=== PATIENT | female | born 1960 | race American Indian/Alaskan Native ===

== ENCOUNTER 2018-01-09 14:48 | Emergency (ER) | payer MEDICAID, OTHER ==
[2018-01-09 15:14] VITALS: BMI 21.7
--- NOTE | 2018-01-09 16:00 | C.PDOC ---
History Of Present Illness 57 y/o F c PMHx HTN, DM p/w fever, congestion, body aches x 6 days. Denies abd pain, diarrhea, rash, recent travel. Had 1 episode of NBNB vomiting on Day 1. treated in this ED yesterday and prescribed Tamiflu. Time Seen by Provider: 01/09/18 15:42 Chief Complaint (Nursing): Flu-like Symptoms Past Medical History Vital Signs: Last Vital Signs Temp 99.6 F 01/09/18 17:41 Pulse 105 H 01/09/18 17:41 Resp 18 01/09/18 17:41 BP 106/71 01/09/18 17:41 Pulse Ox 95 01/09/18 17:41 - Medical History PMH: HTN Family History: States: No Known Family Hx - Social History Hx Alcohol Use: No Hx Substance Use: No - Immunization History Hx Tetanus Toxoid Vaccination: No Hx Influenza Vaccination: Yes (2016) Hx Pneumococcal Vaccination: No Review Of Systems Except As Marked, All Systems Reviewed And Found Negative. Respiratory: Negative for: Shortness of Breath Gastrointestinal: Negative for: Diarrhea Physical Exam - Physical Exam Additional Physical Exam Comments: Gen: NAD Head: NC Eyes: PERRL ENT: MMM Neck: Supple CV: Tachyardic Lungs: No accessory muscle use Abd: Soft Extremities: No swelling Neuro: Alert, no focal deficit ED Course And Treatment O2 Sat by Pulse Oximetry: 96 Medical Decision Making Medical Decision Making: CXR no acute disease. Temperature and HR both improved. Patient appears well. Will discharge, f/u PMD , instructed to return to ED for worsening dyspnea, vomiting, weakness, or any other problem. Disposition - Disposition Referrals: Odin Lara MD [Staff Provider] - Disposition: HOME/ ROUTINE Disposition Time: 17:49 Condition: STABLE Prescriptions: Oseltamivir Phosphate [Tamiflu] 75 mg PO BID #10 capsule Instructions: Flu, Adult (DC) Forms: [employer] ([place]wegian) - Clinical Impression Clinical Impression: Influenza-like illness
--- NOTE | 2018-01-09 16:46 | RAD ---
HISTORY: cough COMPARISON: No prior. TECHNIQUE: Chest PA and lateral FINDINGS: LUNGS: No acute infiltrate. PLEURA: No significant pleural effusion identified. No pneumothorax apparent. CARDIOVASCULAR: Normal. OSSEOUS STRUCTURES: No significant abnormalities. VISUALIZED UPPER ABDOMEN: Normal. OTHER FINDINGS: None. IMPRESSION: No active disease.
[2018-01-09 17:42] VITALS: BP 106/71; PULSE 105; RESP 18; TEMP 99.6
[2018-01-09 17:50] VITALS: O2SAT 96
== END 2018-01-09 18:06 | disposition home or self-care (01) ==
LOC: C.ER 14:48
DX: J11.1 Influenza due to unidentified influenza virus with other respiratory manifestations (principal)